=== PATIENT | female | born 1955 | race African-American/Black ===

== ENCOUNTER 2021-09-03 11:38 | Emergency (ER) | payer OTHER, MEDICARE ==
[2021-09-03] MEDS ORDERED: Acetaminophen 325 MG TAB ONE (11:51)
== END 2021-09-03 12:40 | disposition home or self-care (01) ==
LOC: ERS 11:38
DX: S00.03XA Contusion of scalp, initial encounter (principal); W07.XXXA Fall from chair, initial encounter; Y92.59 Other trade areas as the place of occurrence of the external cause
CPT/HCPCS: 70450